=== PATIENT | female | born 1955 | race Caucasian/White ===

== ENCOUNTER 2023-09-21 21:01 | Emergency (ER) | payer OTHER, SELFPAY ==
[2023-09-21 21:09] VITALS: BP 145/81; PULSE 81; RESP 16; TEMP 36.5; O2SAT 93
--- NOTE | 2023-09-21 21:23 | ED.GENADUL_ITS ---
Discharge Plan Disposition Patient Disposition: Home Condition: Stable Discharge Details Clinical Impression: Rash Primary Care Provider: Cecil Velasco ED Provider: Perry Burr Home Meds and New Rx's Prescriptions: New prednisone 20 mg tablet 60 mg PO DAILY 4 Days Qty: 12 0RF amoxicillin-pot clavulanate 875-125 mg tablet 1 tab PO BID Qty: 14 0RF Continued multivitamin 1 EACH capsule 1 ea PO DAILY sertraline 100 MG tablet 150 mg PO DAILY albuterol sulfate [Ventolin HFA] 200 PUFF HFA aerosol inhaler 2 puff Inhalation Q4H PRN PRN Pulmicort Flexhaler 180 MCG aerosol powdr breath activated 2 puff Inhalation DAILY PRN losartan 100 mg tablet fluticasone propionate [Flonase Allergy Relief] 50 mcg/actuation spray,suspension INTRANASAL Patient Comments: [place] 1 spray into both nostrils once a day Discharge Instructions Instructions: Acute Rash (ED) Additional Instructions: if not improving this week follow up with your primary care provider if you feel more ill, have fevers or the rash spreads up the leg return to the e mergency department Medical Decision Making 68 yo female with hx of asthma, htn, who comes in with rash on left inner ankle for several days, is unsure if an insect bit her or not but noticed a small red bump in the area several days ago and is now bigger. Denies fevers or chills. She is stable on arrival and appears well caox4. She has a circular mildly erythematous circular lesion that is flat 3x4cm in size. It does carlos, not warm to touch, no fluctuance, no vesicles. No leg swelling or calf tenderness. Appearance seems more consistent with a localized dermatitis but could also be a mild cellulitis, will treat with prednisone and augmentin. She has stable vitals and appears well so do not feel sepsis workup indicated. No findings on exam to suggest dvt and no fluctuance to suggest abscess. She will f/u with pcp if not improving this week and return precautions given Differential Diagnosis Differential Diagnosis: cellulitis, dermatitis, contact dermatitis HPI General Mode of arrival: ambulatory . Date/Time Provider Initiated Documentation: 09/21/23 21:03 . Limitations to Documentation: no limitations . Information obtained by: patient . History of Present Illness 68 year old F presents to the emergency department with the chief complaint of rash on left inner ankle, described as moderate, Quality is described as aching, Patient started experiencing this day(s) (2) and it has been constant. No relieving factors improve symptom(s), No exacerbating factors reported . Patient notes no other symptoms.; denies fever/chills. Patient did receive the following treatments prior to arrival, none Related Data Home Medications Medication Instructions Recorded Confirmed multivitamin 1 ea PO DAILY 06/28/17 09/21/23 albuterol sulfate 90 mcg/actuation 2 puff inhalation Q4H PRN PRN 01/28/18 09/21/23 aerosol inhaler (Ventolin HFA) budesonide 180 mcg/actuation 2 puff inhalation DAILY PRN 01/28/18 09/21/23 breath activated powder inhaler (Pulmicort Flexhaler) sertraline 100 mg tablet 150 mg PO DAILY 01/28/18 09/21/23 amoxicillin 875 mg-potassium 1 tab PO BID #14 tabs 09/21/23 clavulanate 125 mg tablet fluticasone propionate 50 intranasal 09/21/23 mcg/actuation nasal spray,suspension (Flonase Allergy Relief) losartan 100 mg tablet mg 09/21/23 prednisone 20 mg tablet 60 mg (3 x 20 mg) PO DAILY 4 days 09/21/23 #12 tabs Previous Rx's Medication Instructions Recorded amoxicillin 875 mg-potassium 1 tab PO BID #14 tabs 09/21/23 clavulanate 125 mg tablet prednisone 20 mg tablet 60 mg (3 x 20 mg) PO DAILY 4 days 09/21/23 #12 tabs Allergies Allergy/AdvReac Type Severity Reaction Status Date / Time alcohol Allergy Unverified 09/21/23 21:13 Beta-Blockers Allergy eye drops Unverified 09/21/23 21:13 (Beta-Adrenergic Bloc brimonidine Allergy Unverified 09/21/23 21:13 Carbonic Anhydrase Inhibitors Allergy eye drops Unverified 09/21/23 21:13 General Stated Complaint: Cellulitis ABENA: 3 Review of Systems All systems reviewed & are unremarkable except as noted in HPI and below Constitutional Constitutional: Denies chills, Denies fever(s) and Denies weakness Cardiovascular Cardiovascular: Denies chest pain and Denies dyspnea Respiratory Respiratory: Denies cough and Denies dyspnea Gastrointestinal Gastrointestinal: Denies abdominal pain, Denies nausea and Denies vomiting Integumentary/Breasts Skin/Breast: Reports rash Neurologic Neurologic: Denies weakness PFSH All Active Problems (Updated 09/21/23 @ 21:24 by Perry Burr MD) Rash (Acute) Medical History (Updated 09/21/23 @ 21:24 by Perry Burr MD) Asthma Glaucoma Chest pain Left shoulder pain Recurrent sinusitis Seborrhea Neck sprain Heel pain, bilateral Eczema Ganglion cyst Somnolence Fullness of breast Surgical History (Updated 09/17/18 @ 14:33 by [facility] [place]) Functional endoscopic sinus surgery section Social History Smoking/Tobacco Use Status: Never Smoking risk assessment performed?: Yes Alcohol Intake: never Drug use: Never Substance use type: does not use Exam Const General: no acute distress Orientation: alert HENMT Head: normal to inspection Ears: external ears normal General nose exam: external nose normal Mouth: moist mucous membranes Eyes General: appearance normal, both eyes and all related structures Neck Neck: normal visual inspection Resp Effort & Inspection: normal respiratory effort and able to speak in complete sentences Cardio Rate: regular rate Skin General skin exam: elasticity normal Neuro General: patient alert and patient oriented x3 Extrem General: full ROM and capillary refill normal Psych Mental Status: mental status grossly normal Course Vital Signs Vital signs: Vital Signs Temperature 36.5 C 09/21/23 21:09 Pulse 81 09/21/23 21:09 Respiratory Rate 16 09/21/23 21:09 Blood Pressure 145/81 H 09/21/23 21:09 Pulse Oximetry 93 09/21/23 21:09 Temperature 36.5 C 09/21/23 21:09 Temperature Source Oral 09/21/23 21:09 Pulse 81 09/21/23 21:09 Respiratory Rate 16 09/21/23 21:09 Respiratory Effort Normal 09/21/23 21:12 Blood Pressure 145/81 H 09/21/23 21:09 Blood Pressure Position Sitting 09/21/23 21:09 Pulse Oximetry 93 09/21/23 21:09 Oxygen Delivery Method Room Air 09/21/23 21:09 Oxygen Flow Rate 0 09/21/23 21:09 Pain Level 4 09/21/23 21:09
[2023-09-21] MEDS: predniSONE 20 MG TAB 60 MG PO (21:26)
[2023-09-21] MEDS: Amoxicillin 875/Clav. 125 TAB PO (21:26)
== END 2023-09-21 21:32 | disposition home or self-care (01) ==
PROVIDERS: Emergency Provider Emergency Medicine; PCP Family Medicine
DX: R21 Rash and other nonspecific skin eruption (principal)
CPT/HCPCS: 99283; 99284; J7512